=== PATIENT | female | born 1950 | race Caucasian/White ===

== ENCOUNTER 2019-03-26 11:45 | Outpatient (CLI) | payer MEDICARE, MEDICAID, SELFPAY ==
--- NOTE | ~2019-03-26 | CT_ITS ---
EXAMINATION: CT shoulder RT w con DATE: 03/26/2019 12:56 INDICATION: Right shoulder pain. TECHNIQUE: Computed tomography (CT) of the right shoulder was performed without intravenous contrast after intra-articular injection of contrast (CT arthrogram). Automated exposure control and iterative reconstruction technique were employed. The dose-length product was 408.89 mGy-cm. COMPARISON: None FINDINGS: Partially visualized is a device in right chest with wire in right neck. Bone alignment is normal. No fracture. The acromion undersurface is curved in morphology (type II). The glenoid cartila ge is normal. Humeral head cartilage is normal. There is moderate acromioclavicular joint osteoarthri tis including an inferiorly directed osteophyte. There is no asymmetric fatty atrophy of the rotator cuff muscle bellies. There is an articular-sided partial-thickness tear of supraspinatus and infraspi natus tendons measuring 8 mm anterior to posterior by 10 mm proximal to distal by up to 70% tendon th ickness. There is a complete tear of proximal biceps tendon. IMPRESSION: 1. Articular-sided, partial-thickness tear of supraspinatus and infraspinatus tendons. 2. Complete tear of proximal biceps tendon. 3. Moderate acromioclavicular joint osteoarthritis. Reviewed, dictated and finalized at location A. TWIST OPERATOR IMPRESSION: 1. Articular-sided, partial-thickness tear of supraspinatus and infraspinatus t endons. 2. Complete tear of proximal biceps tendon. 3. Moderate acromioclavicular joint osteoarthritis.
--- NOTE | ~2019-03-26 | XR_ITS ---
EXAMINATION: XR fl inj shoulder RT - MR/CT DATE: 03/26/2019 12:57 INDICATION: Right shoulder pain. No prior surgery or dislocation. TECHNIQUE: A time-out was performed to verify the patient's name, date of , and procedure to b e performed. The procedure including the risks, benefits, and alternatives was discussed with the pat ient. Risks discussed included bleeding and infection. The patient understood the risks and agreed to proceed. The skin overlying the right glenohumeral joint was prepped and draped in usual sterile fas hion. Anesthetic was administered with 1% lidocaine subcutaneously. A 22 G needle was advanced unde r fluoroscopic guidance into the joint. Subsequently, injectate consisting of 10 mL of 3:5 1% lidoca ine, and 2:5 Omnipaque 350 was instilled. The needle was removed and the entry site was cleaned and dressed. There were no immediate complications. Fluoroscopy exposure time was 0.1 minutes. The total number of images was 3. FINDINGS: Real-time fluoroscopy demonstrates the needle and contrast in the right glenohumeral joint. IMPRESSION: 1. Successful right glenohumeral joint injection of contrast for subsequent CT arthrography. Reviewed, dictated and finalized at location A. NO MANAGER
== END 2019-03-26 11:46 | disposition home or self-care (01) ==
LOC: ANHIMG 12:05
PROVIDERS: PCP Nurse Practitioner Family; Visit Provider Physician Assistant Surgical
DX: M19.011 Primary osteoarthritis, right shoulder (principal); S46.211A Strain of muscle, fascia and tendon of other parts of biceps, right arm, initial encounter; X58.XXXA Exposure to other specified factors, initial encounter
CPT/HCPCS: 23350; 73201; 77002

== ENCOUNTER → 2019-10-13 14:14 | Outpatient (CLI) | payer MEDICARE, SELFPAY ==
--- NOTE | ~2019-10-13 | MM_ITS ---
EXAMINATION: MM screening sia RT w isauro HISTORY: Screening. Left mastectomy. TECHNIQUE: Craniocaudal and mediolateral oblique 3-D tomosynthesis images were obtained and synthetic 2-D images were generated. CAD analysis was submitted and interpreted. COMPARISON: 06/19/2018 BREAST PARENCHYMAL COMPOSITION: There are scattered areas of fibroglandular density. FINDINGS: There is no evidence of suspicious mass, calcification, or architectural distortion to sugg est malignancy in the right breast. There has been no suspicious interval change. IMPRESSION: 1. No mammographic evidence of malignancy. 2. Recommend routine screening mammography in one year. BI-RADS Category 1: Negative Reviewed, dictated and finalized at location A.
== END ==
PROVIDERS: PCP Nurse Practitioner Family; Visit Provider Nurse Practitioner Family
DX: Z12.31 Encounter for screening mammogram for malignant neoplasm of breast (principal)
CPT/HCPCS: 77063; 77067

== ENCOUNTER 2021-07-11 12:56 | Outpatient (CLI) | payer MEDICARE, MEDICAID, SELFPAY ==
--- NOTE | ~2021-07-11 | XR_ITS ---
EXAMINATION: XR lumbar spine 2-3V DATE: 07/11/2021 13:12 INDICATION: Low back pain TECHNIQUE: Anteroposterior and lateral views of the lumbar spine, and cone-down lateral view of the l umbosacral junction were obtained. COMPARISON: None. FINDINGS: There is an age-indeterminate compression fracture of L1 with 25% loss of anterior vertebra l body height. The remaining vertebral body heights are maintained. There are 3 mm of anterolisthesis of L4 on L5. There is mild loss of intervertebral disc space height at L4-5 and moderate loss of int ervertebral disc space height at L5-S1. There is severe lower lumbar spondylosis. Surgical clips are noted in the pelvis. IMPRESSION: 1. Age-indeterminate L1 compression fracture with 25% loss of anterior vertebral body height. Reviewed, dictated and finalized at location F. IMPRESSION: 1. Age-indeterminate L1 compression fracture with 25% loss of anterior vertebra l body height.
== END 2021-07-11 12:57 | disposition home or self-care (01) ==
PROVIDERS: PCP Nurse Practitioner Family; Visit Provider Nurse Practitioner Family
DX: S32.010A Wedge compression fracture of first lumbar vertebra, initial encounter for closed fracture (principal); X58.XXXA Exposure to other specified factors, initial encounter
CPT/HCPCS: 72100

== ENCOUNTER 2022-10-01 10:37 | Emergency (ER) | payer MEDICARE, MEDICAID, SELFPAY ==
[2022-10-01 10:52] VITALS: BP 110/72; PULSE 75; RESP 16; TEMP 36.6; O2SAT 98
--- NOTE | 2022-10-01 10:53 | ED.ANIMALBIT ---
HPI - Animal Bite General Chief Complaint: Animal Bite Stated Complaint: left arm dog bite Time Seen by Provider: 10/01/22 10:57 Source: patient and RN notes reviewed Mode of arrival: ambulatory Limitations: no limitations History of Present Illness HPI narrative: 71 year old female presents with concern for dog bite. Reports 2 days ago she was bitten by her dog on the left forearm. She reports a puncture wound. She reports this morning she woke up and the arm was red, swollen, tender. Reports she had a fever last night. She denies any MD complaint: animal bite Related Data Home Medications Medication Instructions Recorded Confirmed amantadine HCl 100 mg capsule mg 10/01/22 carbidopa 25 mg-levodopa 100 mg tablet 10/01/22 tablet citalopram 40 mg tablet mg 10/01/22 omeprazole 40 mg capsule,delayed mg 10/01/22 release propranolol 10 mg tablet mg 10/01/22 Allergies Allergy/AdvReac Type Severity Reaction Status Date / Time PROPOXYPHENE NAPSYLATE Allergy Intermediate Uncoded 03/14/17 13:13 Review of Systems Review of Systems: CONSTITUTIONAL: Denies malaise, chills, sweats. Reports fever. SKIN: Reports dog bite to the left forearm with redness, swelling, tenderness MUSCULOSKELETAL: Denies muscle skeletal pain NEUROLOGIC: Denies numbness, weakness All systems reviewed & are unremarkable except as noted in HPI and below PMFSH Comments At time of signature, agree with nursing past medical, surgical, social and family history. There is no relevant family history pertinent to the presenting complaint Exam Narrative: GENERAL: Well-appearing, well-nourished, and in no acute distress. HEAD: Normocephalic, atraumatic. EYES: PERRLA, conjunctivae clear ENT: Mucous membranes moist. NECK: Supple. No lymphadenopathy CHEST: Clear to auscultation. No respiratory distress. HEART: Regular rate and rhythm. SKIN: Warm, dry. Erythema, induration, tenderness, warmth with sharp margins noted to the left forearm with a scabbed puncture wound noted. No fluctuation, vesicles, bullae, necrosis, ecchymosis, crepitus noted. NEURO: Alert and oriented x3. PSYCH: Normal mood and affect Course Course Emergency Course: Patient is aware of diagnosis, understands and agrees to treatment plan. Anticipatory guidance given. Patient agrees to follow-up as directed and is aware of reasons to seek care at the emergency department. Portions of this record may have been created with voice recognition software Level of Care: Express Care Visit Vital Signs Vital signs: Reviewed. MDM - Animal Bite MDM Narrative Medical decision making narrative: Does not appear at this time to be erythema multiforme, bullous, SJS, TEN; no evidence at this time to suggest RMSF, NSTI, endocarditis or Lyme disease; patient looks well, nontoxic and is tolerating oral intake; no neurologic signs or symptoms; no headache, photophobia or neck pain; afebrile. Patient does not have history of of penetrating trauma, laceration, blunt trauma, recent surgery, immunosuppression, malignancy, obesity, alcoholism, corticosteroid use. Discussed the importance of follow-up, patient agrees; question, cellulitis versus necrotizing soft tissue infection versus abscess. Critical Care Time Critical Care Time Critical Care Time: No Discharge Plan Discharge Clinical Impression: Dog bite of left forearm with infection Patient Disposition: Home, Self-Care Condition: Stable Instructions: Antibiotic Form, Cellulitis (ED) Additional Instructions: Please follow up with your Primary Care Doctor within 48-72 hours - call for an appointment. Rest and elevate affected area; apply moist heat 3-4 times daily for 10-15 minutes. Take Tylenol for pain. Please take Antibiotics as directed. If you experience any worsening redness, swelling, streaking (red lines), fever or chills please go to the ER Prescriptions: New amoxicillin-pot clavulanate 875-125 mg tab
== END 2022-10-01 11:10 | disposition home or self-care (01) ==
PROVIDERS: Emergency Provider Nurse Practitioner; PCP Nurse Practitioner Family
DX: S51.832A Puncture wound without foreign body of left forearm, initial encounter (principal); L08.9 Local infection of the skin and subcutaneous tissue, unspecified; W54.0XXA Bitten by dog, initial encounter; G20 Parkinson's disease
CPT/HCPCS: 99213; G0463

== ENCOUNTER 2022-11-30 08:12 | Emergency (ER) | payer MEDICARE, MEDICAID, SELFPAY ==
[2022-11-30 08:19] VITALS: BP 92/72; PULSE 88; RESP 16; TEMP 37.2; O2SAT 98
--- NOTE | 2022-11-30 08:39 | ED.SKABFB ---
HPI - Skin/Abscess/Foreign Bdy General Chief complaint: Skin/Abscess/Foreign Body Stated complaint: left arm injury from fall Source: patient, family and RN notes reviewed History of Present Illness HPI narrative: 72 yo F presents to urgent care with daughter at side. Pt presents for left forearm swelling, redness, and pain. Pt states she fell onto her left forearm 2 days ago. Pt states she is now having drainage from a wound to her left FA. Pt was noted to have a dog bite in the same area 2 months ago which she took Augmentin for. Pt is reporting subjective fevers at home and nausea. Pt also reports a REDD. Pt and daughter have noticed pt has been slurring her words since yesterday morning. Pt denies hitting her head when she fell. States she fell b/c she tripped while backing up using her walker. Pt denies any dizziness, weakness, numbness, or tingling. Daughter states pt doesn't seem to be herself yesterday or today. Pt is A&Ox4. Denies any chest pain or vomiting. Related Data Home Medications Medication Instructions Recorded Confirmed amantadine HCl 100 mg capsule 100 mg PO DAILY 10/01/22 11/30/22 carbidopa 25 mg-levodopa 100 mg 1 tablet PO DAILY 10/01/22 11/30/22 tablet omeprazole 40 mg capsule,delayed 40 mg PO DAILY 10/01/22 11/30/22 release propranolol 10 mg tablet 10 mg PO BID 10/01/22 11/30/22 Allergies Allergy/AdvReac Type Severity Reaction Status Date / Time PROPOXYPHENE NAPSYLATE Allergy Intermediate Unknown Uncoded 11/30/22 08:35 Review of Systems Review of Systems: CONSTITUTIONAL: Fevers EYES: Denies visual changes, redness, or discharge. ENT: Denies otalgia and sore throat CARDIOVASCULAR: Denies chest pain, palpitations, or edema. RESPIRATORY: dyspnea. GASTROINTESTINAL: Nausea GENITOURINARY: Denies dysuria or hematuria. SKIN: redness and swelling to left FA MUSCULOSKELETAL: Denies back pain, joint pain, or myalgia. NEUROLOGIC: Headache, slurred speech Pertinent positives per HPI. PMFSH Comments At the time of my signature, I reviewed and agree with the nursing past medical, surgical, social, and family history. There is no relevant family history pertinent to the patient complaint. Exam Narrative: GENERAL: In no apparent distress. Slightly disheveled. HEAD: normocephalic, atraumatic. EYES: Sclera clear/white. Vision is grossly intact. EARS: External ears normal, auditory canals clear and without drainage. Hearing grossly intact. NOSE: External nose normal with no obvious nasal discharge, nares without redness, no rhinorrhea. THROAT: Mucous membranes moist, posterior pharynx clear. NECK: Neck supple, non-tender without lymphadenopathy, masses or thyromegaly. CARDIOVASCULAR: Regular rate and rhythm without murmurs, gallops, or rubs. RESPIRATORY: Clear to auscultation. Breath sounds equal bilaterally. No wheezes, rales, or rhonchi. SKIN: warm, intact with no suspicious lesions or rash, good texture and turgor. NEURO: awake, alert, and oriented to person, place and time. Pt noted to have some slurred speech. 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 Face is symmetrical. No tongue deviation. PERRLA. EXTREMITIES:Left FA edematous, warm to the touch, and erythremic, extending from wrist to mid bicep. Erythema is circumferential to FA. 3-4 cm open wound to left posterior forearm with yellow drainage noted. Course Course Level of Care: Express Care Visit Vital Signs Vital signs: Vital Signs Temperature 99 F 11/30/22 08:19 Pulse Rate 88 11/30/22 08:19 Respiratory Rate 16 11/30/22 08:19 Blood Pressure 92/72 L 11/30/22 08:19 Pulse Oximetry 98 11/30/22 08:19 Oxygen Delivery Room Air 11/30/22 08:19 Temperature 98.5 F 11/30/22 08:51 Pulse Rate 88 11/30/22 08:19 Respiratory Rate 16 11/30/22 08:19 Blood Pressure 92/72 L 11/30/22 08:19 Pulse Oximetry 98 11/30/22 08:19 Oxygen Delivery Room Air 11/30/22 08:19 reviewed MDM - Sk
[2022-11-30 08:51] VITALS: TEMP 36.9
[2022-11-30 08:52] LABS: Glucose Point of Care 133 mg/dl (65-105)
--- NOTE | 2022-11-30 09:32 | PC.NURSE ---
0845 FINGER STICK GLUCOSE 133
== END 2022-11-30 09:01 | disposition short-term general hospital (02) ==
PROVIDERS: Emergency Provider Nurse Practitioner Family; PCP Nurse Practitioner Family
DX: R47.81 Slurred speech (principal); L03.114 Cellulitis of left upper limb; W01.0XXA Fall on same level from slipping, tripping and stumbling without subsequent striking against object, initial encounter; R06.00 Dyspnea, unspecified; G20.A1 Parkinson's disease without dyskinesia, without mention of fluctuations
CPT/HCPCS: 82948; 99212; G0463